=== PATIENT | male | born 2005 | race Caucasian/White ===

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

== ENCOUNTER 2024-06-18 17:52 | Emergency (ER) | payer SELFPAY ==
[2024-06-18 17:59] VITALS: BP 136/96; PULSE 100; RESP 20; TEMP 37.1; O2SAT 99
--- NOTE | 2024-06-18 18:07 | ED.GENADUL_ITS ---
Discharge Plan Disposition Patient Disposition: Home Condition: Stable Discharge Details Clinical Impression: Rash Primary Care Provider: Josselin Kat ED Provider: Joel Hudson Home Meds and New Rx's Prescriptions: Continued cholecalciferol (vitamin D3) 125 mcg (5,000 unit) capsule 125 mcg PO DAILY Qty: 90 2RF clindamycin-benzoyl peroxide 1-5 % gel 1 applic topical DAILY Qty: 75 2RF Rx Instructions: Use daily in the morning doxycycline hyclate 100 mg capsule See Rx Instructions .ROUTE .COMPLEX Qty: 90 3RF Dose Instruction: TAKE ONE CAPSULE BY MOUTH EVERY DAY Rx Instructions: TAKE ONE CAPSULE BY MOUTH EVERY DAY fluoxetine 20 mg capsule See Rx Instructions .ROUTE .COMPLEX Qty: 90 3RF Dose Instruction: TAKE ONE CAPSULE BY MOUTH EVERY DAY Rx Instructions: TAKE ONE CAPSULE BY MOUTH EVERY DAY risperidone 1 mg tablet See Rx Instructions .ROUTE .COMPLEX Qty: 180 3RF Dose Instruction: TAKE ONE TABLET BY MOUTH TWICE A DAY Rx Instructions: TAKE ONE TABLET BY MOUTH TWICE A DAY fluoxetine 10 mg capsule See Rx Instructions .ROUTE .COMPLEX Qty: 90 11RF Dose Instruction: TAKE ONE CAPSULE BY MOUTH EVERY DAY Rx Instructions: TAKE ONE CAPSULE BY MOUTH EVERY DAY metformin 500 mg tablet 500 mg PO BID Qty: 180 11RF Discharge Instructions Additional Instructions: I suspect some thing got on your skin that is causing a reactive rash. I would recommend trying [id number] cortisone or hydrocortisone cream. If this not improving after a week I would recommend following up with express care or your primary care provider. If you feel more ill or have new symptoms such as severe pain or high fevers return to the emergency department for reevaluation HPI General Mode of arrival: ambulatory . Date/Time Provider Initiated Documentation: 06/18/24 17:52 . Limitations to Documentation: no limitations . Information obtained by: patient . History of Present Illness 18 year old M presents to the emergency department with the chief complaint of rash on arm, described as mild, and is localized to the left and upper extremity. Patient reports no radiation. Patient started experiencing this hour(s) (2) and it has been constant. No relieving factors improve symptom(s), No exacerbating factors reported . Patient notes no other symptoms.. Patient did receive the following treatments prior to arrival, none Related Data Home Medications ?Medication ?Instructions ?Recorded ?Confirmed cholecalciferol (vitamin D3) 125 125 mcg PO DAILY #90 caps 09/16/23 06/18/24 mcg (5,000 unit) capsule clindamycin 1 %-benzoyl peroxide 5 1 applic topical DAILY #75 grams 09/16/23 06/18/24 % topical gel doxycycline hyclate 100 mg capsule See Rx Instructions .Route 09/16/23 06/18/24 .COMPLEX #90 caps fluoxetine 20 mg capsule See Rx Instructions .Route 09/16/23 06/18/24 .COMPLEX #90 caps risperidone 1 mg tablet See Rx Instructions .Route 09/16/23 06/18/24 .COMPLEX #180 tabs fluoxetine 10 mg capsule See Rx Instructions .Route 02/26/24 06/18/24 .COMPLEX #90 caps metformin 500 mg tablet 500 mg PO BID #180 tabs 02/26/24 06/18/24 Previous Rx's ?Medication ?Instructions ?Recorded cholecalciferol (vitamin D3) 125 125 mcg PO DAILY #90 caps 09/16/23 mcg (5,000 unit) capsule clindamycin 1 %-benzoyl peroxide 5 1 applic topical DAILY #75 grams 09/16/23 % topical gel doxycycline hyclate 100 mg capsule See Rx Instructions .Route 09/16/23 .COMPLEX #90 caps fluoxetine 20 mg capsule See Rx Instructions .Route 09/16/23 .COMPLEX #90 caps risperidone 1 mg tablet See Rx Instructions .Route 09/16/23 .COMPLEX #180 tabs fluoxetine 10 mg capsule See Rx Instructions .Route 02/26/24 .COMPLEX #90 caps metformin 500 mg tablet 500 mg PO BID #180 tabs 02/26/24 Allergies Allergy/AdvReac Type Severity Reaction Status Date / Time No Known Allergies Allergy Verified 06/18/24 18:02 General Stated Complaint: RashLesion MARITZA: 4 Review of Systems All systems reviewed & are unremarkable except as noted in HPI and below Constitutional Constitutional: Denies chills, Denies fever(s) and Denies weakness Cardiovascular Cardiovascular: Denies chest pain and Denies dyspnea Respiratory Respiratory: Denies cough and Denies dyspnea Gastrointestinal Gastrointestinal: Denies abdominal pain, Denies nausea and Denies vomiting Integumentary/Breasts Skin/Breast: Reports rash Neurologic Neurologic: Denies weakness Exam Const General: no acute distress Orientation: alert HENMT Head: normal to inspection Ears: external ears normal General nose exam: external nose normal Mouth: moist mucous membranes Eyes General: appearance normal, both eyes and all related structures Neck Neck: normal visual inspection Resp Effort & Inspection: normal respiratory effort and able to speak in complete sentences Cardio Rate: regular rate Skin Rashes: rashes noted Neuro General: patient alert and patient oriented x3 Extrem General: normal to inspection Psych Mental Status: mental status grossly normal Course Vital Signs Vital signs: Vital Signs Temperature 37.1 C 06/18/24 17:59 Pulse 100 H 06/18/24 17:59 Respiratory Rate 20 06/18/24 17:59 Blood Pressure 136/96 H 06/18/24 17:59 Pulse Oximetry 99 06/18/24 17:59 Temperature 37.1 C 06/18/24 17:59 Pulse 100 H 06/18/24 17:59 Respiratory Rate 20 06/18/24 17:59 Blood Pressure 136/96 H 06/18/24 17:59 Blood Pressure Position Sitting 06/18/24 17:59 Pulse Oximetry 99 06/18/24 17:59 Oxygen Delivery Method Room Air 06/18/24 17:59 Oxygen Flow Rate 0 06/18/24 17:59 Medical Decision Making 89-year-old male comes in after he noticed 4 small circular lesions on his left posterior upper arm. He states he feels well otherwise and has no signs or symptoms. He says is not itchy, he has no fevers, no difficulty breathing, no severe pain. He has 4 circular erythematous slightly raised lesions on the left upper arm that are approximately 1 cm in diameter. There is no tenderness, they rose, there is no fluctuance. I suspect this could be dermatitis, there is no findings on exam to suggest infectious etiology. I will have him start mqvt-[id number] topical cortisone cream. Advised to follow-up with his PCP if not improving and return precautions given Differential Diagnosis Differential Diagnosis: Urticaria, contact dermatitis Quality:SDOH Health Related Social Needs: No Data to Display PFSH All Active Problems (Updated 06/18/24 @ 18:10 by Joel Hudson MD) Rash (Acute) Posttraumatic stress disorder (Chronic) IEP for nonpsychotic mental disorder; 34 hours a week (06/06/20-06/05/21); small group and 1:1 support and counseling Was at a residential treatment facility in [place] from about [id number]; Next annual review 02/2024; current reading level at 11th grade; math at 4th grade Acne (Chronic 08/23/17) Benzaclin facial wash daily; oral Doxycycline every other day Obesity (Chronic) Metformin 500 mg po BID Poor muscle tone (Chronic) Did course of PT without change or interest in change to level of physical activity Abnormal weight gain (Chronic) Weight and wellness clinic referral to [facility] is unrealistic secondary to the travel it would require. Referred to nutrition at [facility] and for Physical therapy summer 2022. Nutrition appt helpful but Issac without interest in making sustained changes to his diet; Labs 04/2023 Aggression (Chronic) Risperdol to 1 mg po BID since 10/2020; Prozac 30 mg daily- has been on this medication since prior to 2019 Intellectual disability (Chronic) Medical History (Updated 06/18/24 @ 18:10 by Joel Hudson MD) of family member His víctor and primary care-taker from [phone] in August 2023 from cancer Speech problem (11/01/11) nml hearing screen 10/18 - [facility] E[facility]. IEP speech/hearing/language and developmental&assistive services Reactive attachment disorder of infancy or infrastructure project manager Esotropia, unspecified (11/01/11) should be following with [facility] for eye care Family History Other No problems noted. Mother Personal history of malignant neoplasm maternal-lung and uterine Mental disorder depresssion Social History (Updated 08/19/23 @ 16:52 by Janae Hawley MD) Smoking/Tobacco Use Status: Never Second Hand Exposure: No Smoking risk assessment performed?: Yes Alcohol Intake: never Drug use: Never Substance use type: does not use Adopted: Yes Caregiver/Support person: Yes (His víctor/legal guardian, Barbara Hayden, August 2023) Details: His uncle Mohsen and Aunt Adriana-living with Isasc and his younger brother Foster care: No Household members: family Housing: house number of grandchildren: 0 Communication Needs: Corrective Lenses Education Level: high school Details: 12h grade [employer] Fall 2022 Do you need help understanding health information?: Always Pets and animals: Yes (1 Pakistani Bulldog) Pets and animals: dog(s) Sexually active: No Do you think of yourself as: straight/heterosexual Current gender identity: male What type of physical activity do you participate in: irregular exercise Seatbelt use: always Fire extinguisher in home: Yes Carbon monox detector in home: Yes Firearms in home: No Do you feel safe at home: Yes
== END 2024-06-18 18:17 | disposition home or self-care (01) ==
LOC: ER 18:38
PROVIDERS: Emergency Provider Emergency Medicine; PCP Student in an Organized Health Care Education/Training Program
DX: R21 Rash and other nonspecific skin eruption (principal)
CPT/HCPCS: 99283